=== PATIENT | male | born 1980 | race Caucasian/White ===

== ENCOUNTER 2016-12-19 13:13 | Emergency (ER) | payer OTHER ==
[~2016-12-19 13:13] MED LIST: RISP1TAB2 PO; SUBO2MIS SL
[2016-12-19 13:14] VITALS: BP 162/92; PULSE 72; RESP 24; TEMP 97.8; O2SAT 99
[2016-12-19] MEDS ORDERED: LEVO.1 PO (13:28)
--- NOTE | 2016-12-19 13:33 | PD ---
HPI Chief Complaint: Psychiatric Symptoms Time Seen by Provider: 13:33 Travel History International Travel<30 days: No Contact w/Intl Traveler<30days: No Traveled to known affect area: No History of Present Illness HPI 36-year-old male came to the emergency room with history of auditory hallucinations and wandering out into the streets as per his mother. He has been doing this for past few days. Patient is supposed to be on Suboxone and as per the mother he last took it a week ago. Patient currently is mumbling and sounds like responding to internal stimuli. As per the mother he has history of schizophrenia. He is not on any medications. Mom is concerned that he is a harm to himself at this point. He was brought in voluntarily although as soon as he got here he wanted to leave and started to run away. He was brought back to the room by security. Vital signs are otherwise within acceptable range. [facility] Past Medical History Narrative Medical List of his past medical, surgical, social and family history is reviewed from the nursing note. Anemia: Yes Blood Disorders: Yes (APLASTIC ANEMIA) Anxiety: Yes Depression: Yes Cancer: No Cardiovascular Problems: No Diabetes: No Diminished Hearing: No Gastrointestinal Disorders: Yes Genitourinary: No Musculoskeletal: Yes Neurologic: Yes Psychiatric: Yes Reproductive: No Respiratory: No Schizophrenia: Yes Seizures: Yes Thyroid Disease: Yes Tetanus Vaccination: Unknown Influenza Vaccination: No Past Surgical History AICD: No Arteriovenous Shunt: No Insulin Pump: No Joint Replacement: No Pacemaker: No Tonsillectomy: Yes Social History Alcohol Use: No Tobacco Use: Yes (4 PPD) Substance Use: Yes (CRACK, COCAINE, LORTABS) Allergies-Medications (Allergen,Severity, Reaction): Coded Allergies: No Known Allergies (Verified Allergy, Unknown, 02/18/07) Comments No known drug allergies. Reported Meds & Prescriptions Reported Meds & Active Scripts Active Reported Synthroid (Levothyroxine Sodium) 100 Mcg Tab 100 Mcg PO DAILY Narrative Medication List of his home medications reviewed from the nursing note. Review of Systems Except as stated in HPI: all other systems reviewed are Neg Physical Exam Narrative GENERAL: Awake, alert, mumbling and seems like responding to internal stimuli SKIN: Focused skin assessment warm/dry. HEAD: Atraumatic. Normocephalic. EYES: Pupils equal and round. No scleral icterus. No injection or drainage. ENT: No nasal bleeding or discharge. Mucous membranes pink and moist. NECK: Trachea midline. No JVD. CARDIOVASCULAR: Regular rate and rhythm. No murmur appreciated. RESPIRATORY: No accessory muscle use. Clear to auscultation. Breath sounds equal bilaterally. GASTROINTESTINAL: Abdomen soft, non-tender, nondistended. Hepatic and splenic margins not palpable. MUSCULOSKELETAL: No obvious deformities. No clubbing. No cyanosis. No edema. NEUROLOGICAL: Awake and alert. No obvious cranial nerve deficits. Motor grossly within normal limits. Normal speech. PSYCHIATRIC: Responding to internal stimuli, poor insight and judgment Data Data Last Documented VS Vital Signs Date Time Temp Pulse Resp B/P Pulse Ox O2 Delivery O2 Flow Rate FiO2 12/19/16 22:15 61 18 129/73 96 12/19/16 16:15 Room Air 12/19/16 13:14 97.8 Orders Complete Blood Count With Diff (12/19/16 13:40) Comprehensive Metabolic Panel (12/19/16 13:40) Psych Screen (12/19/16 13:40) Drug Screen, Random Urine (12/19/16 13:40) Alcohol (Ethanol) (12/19/16 13:40) Haloperidol (Haldol) (12/19/16 13:45) Lorazepam (Ativan) (12/19/16 13:45) Diet Regular Basic (12/19/16 Dinner) Acetaminophen (Tylenol) (12/19/16 20:30) Labs Laboratory Tests Test 12/19/16 12/19/16 13:45 14:30 White Blood Count 10.2 TH/MM3 Red Blood Count 5.13 MIL/MM3 Hemoglobin 16.1 GM/DL Hematocrit 46.6 % Mean Corpuscular Volume 90.8 FL Mean Corpuscular Hemoglobin 31.4 PG Mean Corpuscular Hemoglobin 34.6 % Concent Red Cell Distribution Width 14.1 % Platelet Count 213 TH/MM3 Mean Platelet Volume 7.0 FL Neutrophils (%) (Auto) 71.1 % Lymphocytes (%) (Auto) 20.0 % Monocytes (%) (Auto) 6.9 % Eosinophils (%) (Auto) 1.1 % Basophils (%) (Auto) 0.9 % Neutrophils # (Auto) 7.2 TH/MM3 Lymphocytes # (Auto) 2.0 TH/MM3 Monocytes # (Auto) 0.7 TH/MM3 Eosinophils # (Auto) 0.1 TH/MM3 Basophils # (Auto) 0.1 TH/MM3 CBC Comment DIFF FINAL Differential Comment Sodium Level 137 MEQ/L Potassium Level 3.8 MEQ/L Chloride Level 105 MEQ/L Carbon Dioxide Level 22.6 MEQ/L Anion Gap 9 MEQ/L Blood Urea Nitrogen 6 MG/DL Creatinine 0.98 MG/DL Estimat Glomerular Filtration 87 ML/MIN Rate Random Glucose 107 MG/DL Calcium Level 8.3 MG/DL Total Bilirubin 0.5 MG/DL Aspartate Amino Transf 21 U/L (AST/SGOT) Alanine Aminotransferase 49 U/L (ALT/SGPT) Alkaline Phosphatase 67 U/L Total Protein 7.3 GM/DL Albumin 3.4 GM/DL Ethyl Alcohol Level LESS THAN 3 MG/DL Urine Opiates Screen NEG Urine Barbiturates Screen NEG Urine Amphetamines Screen NEG Urine Benzodiazepines Screen NEG Urine Cocaine Screen NEG Urine Cannabinoids Screen NEG MDM Medical Decision Making Medical Screen Exam Complete: Yes Emergency Medical Condition: Yes Medical Record Reviewed: Yes Differential Diagnosis Psychosis, substance abuse, substance-induced psychosis, schizophrenia Narrative Course 2:52 PM blood test results of back and within normal limit. Awaiting for the urine drug screen. Patient is medically clear. I have Golden acted him. He would require psych screen. Procedures EKG Prior to Arrival: Kae Morley MD Dec 19, 2016 13:33
[2016-12-19] MEDS ORDERED: HALOPERIDOL 5 MG TAB PO ONE (13:45)
[2016-12-19] MEDS ORDERED: LORazepam 2 MG TAB PO ONE (13:45)
[2016-12-19 14:05] LABS: AUTOMATED NEUTROPHIL # 7.2 TH/MM3 (1.8-7.7); BASOPHIL # 0.1 TH/MM3 (0-0.2); BASOPHIL % 0.9 % (0.0-2.0); EOSINOPHIL # 0.1 TH/MM3 (0-0.4); EOSINOPHIL % 1.1 % (0.0-4.0); HEMATOCRIT 46.6 % (39.0-51.0); HEMO FLAGS DIFF FINAL; MEAN CELL VOLUME 90.8 FL (80.0-100.0); MEAN CORPUSCULAR HEMOGLOBIN 31.4 PG (27.0-34.0); MEAN CORPUSCULAR HGB CONC 34.6 % (32.0-36.0); MONO % 6.9 % (0.0-8.0); NEUT % 71.1 % (16.0-70.0); PLATELET COUNT 213 TH/MM3 (150-450); RED BLOOD COUNT 5.13 MIL/MM3 (4.50-5.90); RED CELL DISTRIBUTION WIDTH 14.1 % (11.6-17.2); WHITE BLOOD COUNT 10.2 TH/MM3 (4.0-11.0)
[2016-12-19 14:25] LABS: ANION GAP 9 MEQ/L (5-15); AST (GOT) 21 U/L (15-37); BICARBONATE 22.6 MEQ/L (21.0-32.0); BLOOD UREA NITROGEN 6 MG/DL (7-18); CHLORIDE 105 MEQ/L (98-107); GLOMERULAR FILTRATION RATE 87 ML/MIN (>89); POTASSIUM 3.8 MEQ/L (3.5-5.1); SODIUM (NA) 137 MEQ/L (136-145)
[2016-12-19 14:26] LABS: ALT (GPT) 49 U/L (12-78)
[2016-12-19 14:28] LABS: ALKALINE PHOSPHATASE 67 U/L (45-117); TOTAL BILIRUBIN ADULT 0.5 MG/DL (0.2-1.0)
[2016-12-19 14:30] VITALS: BP 131/82; PULSE 75; RESP 16; O2SAT 98
[2016-12-19 14:49] LABS: AMPHETAMINE, URINE NEG (NEG); BARBITURATES, URINE NEG (NEG); COCAINE, URINE NEG (NEG)
[2016-12-19 16:15] VITALS: BP 134/92; PULSE 73; RESP 18
[2016-12-19] MEDS ORDERED: ACETAMINOPHEN 500 MG CPLT PO ONE (20:30)
[2016-12-19 22:15] VITALS: BP 129/73; PULSE 61; RESP 18; O2SAT 96
== END 2016-12-19 22:43 ==
LOC: NEPE 13:13 → NEPJ 22:43
DX: F20.9 Schizophrenia, unspecified (principal); F17.210 Nicotine dependence, cigarettes, uncomplicated
CPT/HCPCS: 80053; 80307; 85025; 99285